=== PATIENT | male | born 1965 | race African-American/Black ===

== ENCOUNTER 2021-10-12 08:26 | Outpatient (CLI) | payer MEDICARE, OTHER | END 2021-10-12 08:27 | disposition home or self-care (01) | LOC: BICMRI 08:26 | PROVIDERS: ATTEND Specialist | DX: M25.511 Pain in right shoulder (principal); M75.121 Complete rotator cuff tear or rupture of right shoulder, not specified as traumatic ==

== ENCOUNTER 2022-02-13 07:10 | Outpatient (CLI) | payer OTHER | END 2022-02-13 07:11 | disposition home or self-care (01) | LOC: BICULT 07:10 | PROVIDERS: ATTEND Specialist | DX: R31.9 Hematuria, unspecified (principal); N30.81 Other cystitis with hematuria; N28.1 Cyst of kidney, acquired | CPT/HCPCS: 76770 ==

== ENCOUNTER 2023-04-30 07:44 | Emergency (ER) | payer OTHER ==
[2023-04-30] MEDS ORDERED: Acetaminophen 500 MG TAB ONE (09:07)
== END 2023-04-30 09:13 | disposition home or self-care (01) ==
LOC: ERS 07:44
DX: S09.90XA Unspecified injury of head, initial encounter (principal); S16.1XXA Strain of muscle, fascia and tendon at neck level, initial encounter; E78.00 Pure hypercholesterolemia, unspecified; Z79.899 Other long term (current) drug therapy; V89.2XXA Person injured in unspecified motor-vehicle accident, traffic, initial encounter
CPT/HCPCS: 70450; 72125